=== PATIENT | male | born 1985 | race Caucasian/White ===

== ENCOUNTER 2017-01-26 18:39 | Emergency (ER) | payer OTHER ==
[~2017-01-26] VITALS: Ht 167.6 cm; Wt 94.8 kg
[~2017-01-26 18:39] MED LIST: COLACE100 MG PO; ENDOCET 5-3251 EACH PO; FLEXERIL10 MG PO; MOBIC7.5 MG PO; NAPROSYN500 MG PO; NOHOMEMEDS; OXYCODONE-APAP1 EAC6 PO; PHENERGAN25 MG PR; PROMETHAZINE HC25 M1 PO
[2017-01-26] MEDS ORDERED: AUGMENTIN875 MG PO (21:22)
[2017-01-26] MEDS ORDERED: INDOCIN50 MG PO (21:22)
[2017-01-26] MEDS ORDERED: LIDOCAINE20 MG/1 M5 PO (21:22)
[2017-01-26 21:44] VITALS: BP 130/70
== END 2017-01-26 21:44 | disposition home or self-care (01) ==
LOC: EME 18:39
DX: K04.7 Periapical abscess without sinus (principal); K02.9 Dental caries, unspecified; F17.200 Nicotine dependence, unspecified, uncomplicated
CPT/HCPCS: 99281; 99284